=== PATIENT | female | born 1995 | race Caucasian/White ===

== ENCOUNTER 2017-03-12 18:56 | Emergency (ER) | payer SELFPAY ==
[~2017-03-12] VITALS: Ht 154.9 cm; Wt 60.2 kg
[2017-03-12 19:03] VITALS: BP 125/87; PULSE 76; RESP 18; TEMP 98.3; O2SAT 100
--- NOTE | 2017-03-12 20:03 | PD ---
HPI Chief Complaint: Abdominal Pain Time Seen by Provider: 20:01 Travel History International Travel<30 days: No Contact w/Intl Traveler<30days: No Traveled to known affect area: No History of Present Illness HPI Is a 21-year-old female presents with left lower quadrant abdominal pain and difficulty having bowel movements for the past 2 days. Patient states that she' s had some cramping and gnawing intermittent pain to the left lower quadrant. She denies any vaginal discharge states that her cycle now. She, by). She appears well in no obvious distress. States never happened to her before. No surgeries in the past. Symptoms are moderate. PFSH Past Medical History Medical History: Denies Significant Hx ?: Not LMP: NOW Past Surgical History Surgical History: No Previous Surgery Family History Narrative Family History Noncontributory Social History Alcohol Use: Yes Tobacco Use: Yes Substance Use: Yes Allergies-Medications (Allergen,Severity, Reaction): Coded Allergies: Sulfa (Verified Allergy, Intermediate, 03/12/17) Reported Meds & Prescriptions Reported Meds & Active Scripts Active Miralax Powder (Polyethylene Glycol 3350 Powder) 17 Gm Powd 17 Gm PO DAILY 7 Days Mix and dissolve one measuring cap-ful (17 grams) in water or juice. Review of Systems Except as stated in HPI: all other systems reviewed are Neg Physical Exam Narrative GENERAL: Well-developed well-nourished no apparent distress SKIN: Focused skin assessment warm/dry. HEAD: Atraumatic. Normocephalic. EYES: Pupils equal and round. No scleral icterus. No injection or drainage. ENT: No nasal bleeding or discharge. Mucous membranes pink and moist. NECK: Trachea midline. No JVD. CARDIOVASCULAR: Regular rate and rhythm. No murmur appreciated. RESPIRATORY: No accessory muscle use. Clear to auscultation. Breath sounds equal bilaterally. GASTROINTESTINAL: Abdomen soft, non-tender, nondistended. No rebound no percussive tenderness. Hepatic and splenic margins not palpable. MUSCULOSKELETAL: No obvious deformities. No clubbing. No cyanosis. No edema. NEUROLOGICAL: Awake and alert. No obvious cranial nerve deficits. Motor grossly within normal limits. Normal speech. PSYCHIATRIC: Appropriate mood and affect; insight and judgment normal. Data Data Last Documented VS Vital Signs Date Time Temp Pulse Resp B/P Pulse Ox O2 Delivery O2 Flow Rate FiO2 03/12/17 22:05 61 18 99/68 100 03/12/17 20:55 Room Air 03/12/17 19:03 98.3 Orders Urinalysis - C+S If Indicated (03/12/17 19:51) Ed Urine Pregnancytest Poc (03/12/17 19:51) Abdomen, Kub Only (03/12/17 ) Acetaminophen (Tylenol) (03/12/17 20:30) Labs Laboratory Tests Test 03/12/17 20:15 Urine Color YELLOW Urine Turbidity SLIGHT Urine pH 6.0 Urine Specific [place] 1.017 Urine Protein NEG mg/dL Urine Glucose (UA) NEG mg/dL Urine Ketones NEG mg/dL Urine Occult Blood LARGE Urine Nitrite NEG Urine Bilirubin NEG Urine Leukocyte Esterase NEG Urine RBC 0-3 /hpf Urine WBC 0-2 /hpf Urine WBC Clumps RARE Urine Squamous Epithelial 0-5 /hpf Cells Urine Mucus OCC /lpf Microscopic Urinalysis Comment CULT NOT INDICATED MDM Medical Decision Making Medical Screen Exam Complete: Yes Emergency Medical Condition: Yes Differential Diagnosis Constipation, , abdominal cramping, STD, PID unlikely, acute abdomen is excluded clinically. Narrative Course Patient was roomed in emergency department, test negative, urine test negative. Patient does have fair amount of gas in her colon but with a nonobstructing pattern. Last 24 hours Impressions Abdomen X-Ray 03/12/17 0000 Signed Impressions: Service Date/Time: Sunday, March 12, 2017 20:40 - CONCLUSION: 1. No bowel obstruction, ileus or perforation. 2. Degenerative changes involving the hip joints bilaterally. Mehrdad Diaz MD Her abdomen is completely benign. The patient was given pain medicine was feeling better. She was recommended for pelvic examination declined. Clinically at this time I think that laboratory and advanced imaging is very unlikely to be of clinical benefit at this time and certainly the latter carries a risk of radiation with it. I discussed this with her and she agrees to defer at this time favoring symptomatic management. Discussed with her follow-up with her primary care physician or the [facility] and return to ED criteria. She is stable for discharge. Diagnosis Primary Impression: Abdominal cramping Patient Instructions: Abdominal Pain (ED), General Instructions Departure Forms: Tests/Procedures, Work Release Enter return to work date: March 13, 2017 Med/Other Pt SpecificInfo: Prescription(s) given Scripts Polyethylene Glycol 3350 Powder (Miralax Powder)17 Gm Powd17 Gm PO DAILY 7 Days Ref 0 Mix and dissolve one measuring cap-ful (17 grams) in water or juice. Prov:Mehrdad Payne MD 03/12/17 Disposition: 01 DISCHARGE HOME Condition: Stable Mehrdad Payne MD March 12, 2017 20:03
[2017-03-12] MEDS ORDERED: ACETAMINOPHEN 325 MG TAB PO ONE (20:30)
[2017-03-12 20:50] LABS: BLOOD, URINE LARGE (NEG); GLUCOSE,URINE NEG (NEG); KETONE, URINE NEG (NEG); NITRITE,URINE NEG (NEG)
[2017-03-12 20:55] VITALS: BP 127/82; PULSE 60; RESP 16; O2SAT 100
[2017-03-12 21:00] LABS: URINE COLOR YELLOW (YELLW/STRAW)
[2017-03-12 21:01] LABS: MUCUS URINE OCC /lpf (OCC); RBC, URINE 0-3 /hpf (0-3); SQUAMOUS EPITHELIAL CELL URINE 0-5 /hpf (0-5); WBC, URINE 0-2 /hpf (0-5)
[2017-03-12 21:03] LABS: COMMENT (UR) CULT NOT INDICATED; CULTURE IF INDICATED CULT NOT INDICATED
--- NOTE | 2017-03-12 21:19 | RADHPO ---
EXAM DATE/TIME: 03/12/2017 20:40 [facility] COMPARISON: No previous studies available for comparison. INDICATIONS : No bowel movements in 3 days with abdominal pain for 1 day. MEDICAL HISTORY : None. SURGICAL HISTORY : None. ENCOUNTER: Initial ACUITY: 3 days PAIN SCORE: 5/10 LOCATION: Bilateral lower abdomen. FINDINGS: Supine view of the abdomen was performed. The abdominal bowel gas pattern is normal. No abnormal ma sses, calcifications, or organomegaly is seen. Mild degenerative changes are noted involving the hip joints bilaterally. CONCLUSION: 1. No bowel obstruction, ileus or perforation. 2. Degenerative changes involving the hip joints bilaterally. Mehrdad Diaz MD on March 12, 2017 at 21:14 Board Certified Radiologist. This report was verified electronically.
[2017-03-12] MEDS ORDERED: MIRA3350 PO (21:30)
[2017-03-12 22:05] VITALS: BP 99/68
== END 2017-03-12 22:01 | disposition home or self-care (01) ==
LOC: PHED 18:56
DX: R10.9 Unspecified abdominal pain (principal); Z72.0 Tobacco use
CPT/HCPCS: 74000; 81001; 84703; 99284

== ENCOUNTER 2017-04-28 23:04 | Emergency (ER) | payer OTHER ==
[~2017-04-28] VITALS: Ht 154.9 cm; Wt 58.9 kg
[~2017-04-28 23:04] MED LIST: MIRA3350 PO
[2017-04-28 23:14] VITALS: BP 125/75; PULSE 65; RESP 12; TEMP 98.1; O2SAT 100
[2017-04-28 23:15] VITALS: BP 118/53; PULSE 95; RESP 26; TEMP 97.9; O2SAT 99
[2017-04-28] MEDS ORDERED: SODIUM CHLOR 0.9% 1000 ML INJ 1,000 ML IV ONE (23:45)
[2017-04-29 00:08] LABS: AUTOMATED NEUTROPHIL # 7.8 TH/MM3 (1.8-7.7); BASOPHIL # 0.3 TH/MM3 (0-0.2); BASOPHIL % 2.5 % (0.0-2.0); EOSINOPHIL # 0.1 TH/MM3 (0-0.4); HEMATOCRIT 35.6 % (35.0-46.0); LYMPH % 15.3 % (9.0-44.0); LYMPHOCYTE # 1.5 TH/MM3 (1.0-4.8); MEAN CELL VOLUME 88.4 FL (80.0-100.0); MEAN CORPUSCULAR HEMOGLOBIN 29.8 PG (27.0-34.0); MEAN CORPUSCULAR HGB CONC 33.7 % (32.0-36.0); MONO % 4.4 % (0.0-8.0); NEUT % 76.8 % (16.0-70.0); PLATELET COUNT 118 TH/MM3 (150-450); RED BLOOD COUNT 4.03 MIL/MM3 (4.00-5.30); RED CELL DISTRIBUTION WIDTH 13.6 % (11.6-17.2); WHITE BLOOD COUNT 10.1 TH/MM3 (4.0-11.0)
[2017-04-29 00:10] LABS: BLOOD, URINE NEG (NEG); GLUCOSE,URINE NEG (NEG); KETONE, URINE NEG (NEG); NITRITE,URINE NEG (NEG)
[2017-04-29 00:13] VITALS: BP_SYST 105; BP_SYST 111; BP_SYST 115; BP_DIAS 66; BP_DIAS 70; BP_DIAS 75; RESP 18; RESP 19
[2017-04-29 00:15] LABS: HEMO FLAGS DIFF FINAL
[2017-04-29 00:32] LABS: BACTERIA, URINE RARE /hpf; POTASSIUM 3.6 MEQ/L (3.5-5.1); RBC, URINE 0-2 /hpf (0-3); SQUAMOUS EPITHELIAL CELL URINE > 8 /hpf (0-5); URINE COLOR YELLOW (YELLW/STRAW)
[2017-04-29 00:33] LABS: COMMENT (UR) CULT NOT INDICATED; COMMENT2 (UR) MUCOUS PRESENT; CULTURE IF INDICATED CULT NOT INDICATED
[2017-04-29 00:35] LABS: BICARBONATE 24.1 MEQ/L (21.0-32.0)
[2017-04-29 01:10] VITALS: BP 100/59; PULSE 87; RESP 17; O2SAT 100
[2017-04-29] MEDS ORDERED: METOCLOPRAMIDE HCL 10 MG/2 ML VIAL IV PUSH ONE (01:45)
[2017-04-29 03:00] VITALS: BP 106/65; PULSE 73; RESP 16; O2SAT 98
--- NOTE | 2017-04-29 03:28 | RADRPT ---
EXAM DATE/TIME: 04/29/2017 02:40 [facility] COMPARISON: No previous studies available for comparison. INDICATIONS : Nausea and vomiting. LAB(S): Beta-hC MEDICAL HISTORY : . Heart murmur. SURGICAL HISTORY : None. ENCOUNTER: Initial ACUITY: 1 day PAIN SCORE: 0/10 LOCATION: Bilateral pelvis MEASUREMENTS: UTERUS: 9.5 x 7.1 x 4.7 cm ENDOMETRIAL STRIPE: >20 mm RIGHT OVARY: 3.9 x 2.6 x 1.8 cm LEFT OVARY: 2.3 x 2.1 x 1.5 cm FREE FLUID: Yes Trace free fluid in posterior cul de sac and adjacent to the left ovary. CROWN RUMP LENGTH: 0.58 cm = 6 WKS 3 DAYS FHR: 107 BPM FINDINGS: UTERUS: The myometrium has homogeneous echotexture without mass. RIGHT OVARY: Ovary contains no mass or significant cystic lesion. A corpus luteal cyst is noted on the right. LEFT OVARY: Ovary contains no mass or significant cystic lesion. MISCELLANEOUS: No free fluid. CONCLUSION: 1. Single viable intrauterine gestation with cardiac activity and a heart rate of 106 beats per minute and an estimated gestational age of 6 weeks 3 days. 2. Small amount of free fluid in the pelvis. Logan Hudson MD on April 29, 2017 at 3:26 Board Certified Radiologist. This report was verified electronically.
[2017-04-29] MEDS ORDERED: REGL10TA5 PO (03:38)
--- NOTE | 2017-04-29 03:41 | PD ---
HPI Chief Complaint: Related Problem Time Seen by Provider: 23:33 Travel History International Travel<30 days: No Contact w/Intl Traveler<30days: No Traveled to known affect area: No History of Present Illness HPI 21-year-old female reports she is 7 weeks last period was and february and for the past 2 days has had nausea with vomiting after eating crackers this evening. Patient has not yet been seen by an [facility] but has gone to the public clinic and had a positive test but has not yet had an ultrasound. Patient denies any vaginal bleeding or abnormal vaginal discharge. Over the past several weeks patient has occasionally had mild pelvic cramping like a period but does not have any pain at this time. Patient's had no hematemesis coffee-ground emesis or bilious emesis. Patient states that because of the vomiting she is fearful of attempting to take oral hydration. Patient presents at this time further evaluation. Patient's had no fever or chills. Patient's had no cough congestion shortness of breath pleuritic pain hematemesis coffee- ground emesis bilious emesis melena hematochezia or diarrhea constipation dysuria frequency urgency flank pain or hematuria. Patient rates pain/ discomfort 0/10 in intensity. Patient is 1 para 0 AB 0. PFSH Past Medical History Narrative Medical Heart murmur tobacco use nursing notes reviewed Medical History: Denies Significant Hx Heart Rhythm Problems: Yes (Heart murmur) Diminished Hearing: No Tetanus Vaccination: Unknown Influenza Vaccination: No ?: LMP: 03/09/17 : 1 Para: 0 Miscarriage: 0 : 0 Past Surgical History Surgical History: No Previous Surgery Social History Alcohol Use: No (QUIT SINCE PREGANT) Tobacco Use: Yes (/ PPD, TRYING TO QUIT) Substance Use: No (DENIES) Allergies-Medications (Allergen,Severity, Reaction): Coded Allergies: Sulfa (Verified Allergy, Intermediate, 04/29/17) Reported Meds & Prescriptions Reported Meds & Active Scripts Active Reglan (Metoclopramide HCl) 10 Mg Tab 10 Mg PO Q6HR Review of Systems Except as stated in HPI: all other systems reviewed are Neg General / Constitutional: No: Fever, Chills HENT: No: Congestion Cardiovascular: No: Chest Pain or Discomfort Respiratory: No: Shortness of Breath Gastrointestinal: Positive: Nausea, Vomiting, No: Abdominal Pain Genitourinary: No: Urgency, Frequency, Dysuria, Hematuria, Decreased Urinary Output, Pelvic Pain, Flank Pain, Discharge, Vaginal Bleeding Musculoskeletal: No: Myalgias, Arthralgias Skin: No Rash Neurologic: No: Weakness Psychiatric: No: Anxiety Hematologic/Lymphatic: No: Lymph Node Enlargement Physical Exam Narrative GENERAL: Well-developed well-nourished female in no acute distress no respiratory distress SKIN: Warm and dry. HEAD: Normocephalic. EYES: No scleral icterus. No injection or drainage. NECK: Supple, trachea midline. No JVD or lymphadenopathy. CARDIOVASCULAR: Regular rate and rhythm without murmurs, gallops, or rubs. RESPIRATORY: Breath sounds equal bilaterally. No accessory muscle use. GASTROINTESTINAL: Abdomen soft, non-tender, nondistended. MUSCULOSKELETAL: No cyanosis, or edema. BACK: Nontender without obvious deformity. No CVA tenderness. Data Data Last Documented VS Vital Signs Date Time Temp Pulse Resp B/P Pulse Ox O2 Delivery O2 Flow Rate FiO2 04/29/17 03:00 73 16 106/65 98 Room Air 04/28/17 23:14 98.1 Orders Beta Hcg (Quant/Titer) (04/28/17 23:33) Complete Blood Count With Diff (04/28/17 23:33) Basic Metabolic Panel (Bmp) (04/28/17 23:33) Complete Rh (04/28/17 23:33) Urinalysis - C+S If Indicated (04/28/17 23:33) Iv Access Insert/Monitor (04/28/17 23:33) Ed Urine Pregnancytest Poc (04/28/17 23:33) Orthostatic Vital Signs (04/28/17 23:33) Sodium Chlor 0.9% 1000 Ml Inj (Ns 1000 M (04/28/17 23:45) Us Pelvis (Ques Pr/Ect)W Trans (04/29/17 ) Metoclopramide Inj (Reglan Inj) (04/29/17 01:45) Labs Laboratory Tests Test 04/28/17 23:59 White Blood Count 10.1 TH/MM3 Red Blood Count 4.03 MIL/MM3 Hemoglobin 12.0 GM/DL Hematocrit 35.6 % Mean Corpuscular Volume 88.4 FL Mean Corpuscular Hemoglobin 29.8 PG Mean Corpuscular Hemoglobin 33.7 % Concent Red Cell Distribution Width 13.6 % Platelet Count 118 TH/MM3 Mean Platelet Volume 10.7 FL Neutrophils (%) (Auto) 76.8 % Lymphocytes (%) (Auto) 15.3 % Monocytes (%) (Auto) 4.4 % Eosinophils (%) (Auto) 1.0 % Basophils (%) (Auto) 2.5 % Neutrophils # (Auto) 7.8 TH/MM3 Lymphocytes # (Auto) 1.5 TH/MM3 Monocytes # (Auto) 0.4 TH/MM3 Eosinophils # (Auto) 0.1 TH/MM3 Basophils # (Auto) 0.3 TH/MM3 CBC Comment DIFF FINAL Differential Comment Urine Color YELLOW Urine Turbidity CLOUDY Urine pH 6.0 Urine Specific [place] 1.031 Urine Protein 30 mg/dL Urine Glucose (UA) NEG mg/dL Urine Ketones NEG mg/dL Urine Occult Blood NEG Urine Nitrite NEG Urine Bilirubin NEG Urine Leukocyte Esterase TRACE Urine RBC 0-2 /hpf Urine WBC 3-5 /hpf Urine Squamous Epithelial > 8 /hpf Cells Urine Amorphous Sediment MOD Urine Bacteria RARE /hpf Microscopic Urinalysis Comment CULT NOT INDICATED Sodium Level 137 MEQ/L Potassium Level 3.6 MEQ/L Chloride Level 103 MEQ/L Carbon Dioxide Level 24.1 MEQ/L Anion Gap 10 MEQ/L Blood Urea Nitrogen 7 MG/DL Creatinine 0.85 MG/DL Estimat Glomerular Filtration 84 ML/MIN Rate Random Glucose 78 MG/DL Calcium Level 8.5 MG/DL Human Chorionic Gonadotropin, [address] MIU/ML Quant Blood Type B POSITIVE Rho(D) Type POSITIVE MDM Medical Decision Making Medical Screen Exam Complete: Yes Emergency Medical Condition: Yes Medical Record Reviewed: Yes Interpretation(s) Urinalysis trace leukocyte Estrace; culture not indicated Last Impressions Pelvis Ultrasound 04/29/17 0000 Signed Impressions: Service Date/Time: Saturday, April 29, 2017 02:40 - CONCLUSION: 1. Single viable intrauterine gestation with cardiac activity and a heart rate of 106 beats per minute and an estimated gestational age of 6 weeks 3 days. 2. Small amount of free fluid in the pelvis. Logan Hudson MD CBC & BMP Diagram 04/28/17 23:59 Vital Signs Date Time Temp Pulse Resp B/P Pulse Ox O2 Delivery O2 Flow Rate FiO2 04/29/17 03:00 73 16 106/65 98 Room Air 7/15/17 01:10 87 17 100/59 100 Room Air 04/29/17 00:13 64 18 105/66 68 18 115/75 69 19 111/70 04/28/17 23:14 98.1 65 12 125/75 100 Ibbhi-sm-[id number] hCG positive Quantitative hCG 29, 261 (B+) Differential Diagnosis , vomiting associated with , hyperemesis gravidarum, dehydration, electronic disturbance, UTI Narrative Course IV access obtained specimens collected and sent for resulting Quantitative hCG 29,061; pelvic ultrasound transvaginal ordered Patient administered bolus of normal saline attempted oral hydration with nausea given Reglan 10 mg IV At 3:40 AM patient aware of lab results imaging results in stable for outpatient management will be given prescription for Reglan encouraged to use vitamins and to follow-up with primary care provider/[facility]; patient given one-day work excuse Diagnosis Primary Impression: Vomiting during Additional Impression: Qualified Code: Z3A.01 - Less than 8 weeks gestation of Referrals: Coding Educator 2 days Patient Instructions: General Instructions Departure Forms: Tests/Procedures, Work Release Special Instructions: no work x 1 day Additional Instructions: Increase fluid hydration Follow clear liquid diet for 12-24 hours advance as tolerated to bland/Betty diet then as tolerated to full diet Take vitamins Take medication as prescribed as needed for nausea and/or vomiting No work times one day 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
== END 2017-04-29 03:55 | disposition home or self-care (01) ==
LOC: PHED 23:04
DX: O21.9 Vomiting of pregnancy, unspecified (principal); Z3A.01 Less than 8 weeks gestation of pregnancy
CPT/HCPCS: 76700; 76817; 80048; 81001; 84702; 84703; 85025; 86901; 96361; 96374; 99285; J2765; J7030

== ENCOUNTER → 2017-09-28 | Outpatient (CLI) | payer MEDICAID ==
[~2017-09-28] MED LIST changes: -MIRA3350 PO; +REGL10TA5 PO
== END ==
LOC: HPND 10:21
PROVIDERS: ATTEND Obstetrics & Gynecology
DX: O35.1XX0 Maternal care for (suspected) chromosomal abnormality in fetus, not applicable or unspecified (principal)
CPT/HCPCS: 76811